=== PATIENT | female | born 1995 ===

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

== ENCOUNTER 2018-06-22 14:54 | Emergency (ER) | payer MEDICAID, OTHER ==
[2018-06-22 15:09] VITALS: O2SAT 100
[2018-06-22] MEDS ORDERED: Sodium Chloride 0.9% 500 ML IV STA (15:40)
--- NOTE | 2018-06-22 15:41 | ED PDOC ---
HPI: Chest Pain Time Seen by Provider: 06/22/18 15:12 Chief Complaint (Nursing): Chest Pain Chief Complaint (Provider): Chest Pain History Per: Patient History/Exam Limitations: no limitations Onset/Duration Of Symptoms: Hrs (x3.5) Current Symptoms Are (Timing): Still Present Quality: "Pain" Associated Symptoms: denies: Nausea, Dyspnea, Diaphoresis, Syncope Modifying Factors: None Exacerbating Factors: Movement Alleviating Factors: None Additional Complaint(s): 22 y/o female with no significant PMHx presents to the ED complaining of chest p ain, onset 3.5 hours ago. Patient reports pain is located in the mid-chest and worsens with movement. Otherwise, patient denies shortness of breath, headache, nausea, vomiting, diarrhea, leg pain, cough, congestion, rhinorrhea, any recent travel, control use and medications for symptom relief. No leg pain. PMD: Past Medical History Reviewed: Historical Data, Nursing Documentation, Vital Signs Vital Signs: Last Vital Signs Temp 98 F 06/22/18 15:09 Pulse 68 06/22/18 15:09 Resp 18 06/22/18 15:09 BP 102/68 06/22/18 15:09 Pulse Ox 100 06/22/18 15:09 - Medical History PMH: No Chronic Diseases - Surgical History Surgical History: No Surg Hx - Family History Family History: States: Unknown Family Hx - Home Medications Home Medications: Ambulatory Orders Medication Instructions Recorded Ibuprofen [Motrin] 600 mg PO Q8 PRN #21 tab 08/29/15 Azithromycin [Zithromax Z-Jimenez] 250 mg PO DAILY #1 packet 01/05/16 metroNIDAZOLE [Flagyl] 500 mg PO BID #14 tab 04/27/17 Famotidine [Pepcid] 20 mg PO DAILY PRN #6 tab 06/22/18 Ibuprofen [Motrin] 600 mg PO TID 7 Days tab 06/22/18 - Allergies Allergies/Adverse Reactions: Allergies Allergy/AdvReac Type Severity Reaction Status Date / Time No Known Allergies Allergy Verified 06/22/18 14:58 Review of Systems ROS Statement: Except As Marked, All Systems Reviewed And Found Negative ENT: Negative for: Nose Discharge, Nose Congestion Cardiovascular: Positive for: Chest Pain (mid-chest) Respiratory: Negative for: Cough, Shortness of Breath Gastrointestinal: Negative for: Nausea, Vomiting, Diarrhea Musculoskeletal: Negative for: Leg Pain Neurological: Negative for: Headache Physical Exam - Reviewed Nursing Documentation Reviewed: Yes Vital Signs Reviewed: Yes - Physical Exam Appears: Positive for: Non-toxic, No Acute Distress. Negative for: Uncomfortable Head Exam: Positive for: ATRAUMATIC, NORMOCEPHALIC Skin: Positive for: Normal Color, Warm, Dry Eye Exam: Positive for: Normal appearance, EOMI ENT: Positive for: Normal ENT Inspection Neck: Positive for: Normal, Painless ROM Cardiovascular/Chest: Positive for: Regular Rate, Rhythm, Chest Non Tender. Negative for: Murmur Respiratory: Positive for: Normal Breath Sounds. Negative for: Respiratory Distress Gastrointestinal/Abdominal: Positive for: Soft. Negative for: Tenderness Back: Positive for: Normal Inspection. Negative for: L CVA Tenderness, R CVA Tenderness Extremity: Positive for: Normal ROM. Negative for: Tenderness, Pedal Edema, Deformity Neurologic/Psych: Positive for: Alert, Oriented (x3) - Laboratory Results Result Diagrams: 06/22/18 16:00 06/22/18 16:00 Interpretation Of Abn Labs: no acute - ECG ECG: Positive for: Interpreted By Me, Viewed By Me ECG Rhythm: Positive for: Normal QRS, Normal ST Segment, Sinus Rhythm O2 Sat by Pulse Oximetry: 100 (RA) Pulse Ox Interpretation: Normal - Radiology X-Ray: Read By Radiologist X-Ray Interpretation: No Acute Disease - Progress ED Course And Treament: 1734: Stable. AAOx3. Pain free. Tolerated PO. Fu with pcp. Medical Decision Making Medical Decision Making: Time: 1541 Plan: -- EKG -- CMP -- Troponin I -- ED Urine -- CBC with Differentials -- CXR Two Views -- Sodium Chloride 0.9% 100 mls/hr -- Pepcid 20 mg IVP -- Toradol 15 mg IVP Scribe Attestation: Documented by Amy Cheney, acting as a scribe for Vazquez Medina MD. Provider Scribe Attestation: All medical record entries made by the Scribe were at my direction and personally dictated by me. I have reviewed the chart and agree that the record accurately reflects my personal performance of the history, physical exam, medical decision making, and the department course for this patient. I have also personally directed, reviewed, and agree with the discharge instructions and disposition. Disposition - Clinical Impression Clinical Impression: Chest pain - Patient ED Disposition Is Patient to be Admitted: No Counseled Patient/Family Regarding: Studies Performed, Diagnosis, Need For Followup, Rx Given - Disposition Referrals: [facility] [Outside] - 06/25/18 Disposition: Routine/Home Disposition Time: 17:35 Condition: STABLE Additional Instructions: Return if not better in 3 days. Prescriptions: Famotidine [Pepcid] 20 mg PO DAILY PRN #6 tab PRN Reason: Pain Ibuprofen [Motrin] 600 mg PO TID 7 Days tab Instructions: Chest Pain Forms: [facility] (Tristanian), [facility] ED School/Work Excuse
[2018-06-22 16:12] LABS: BASO % 0.4 % (0.0-2.0); EOS # 0.2 K/uL (0.0-0.7); EOS % 2.1 % (0.0-4.0); HEMOGLOBIN 12.3 g/dL (12.0-16.0); LYMPH # 2.3 K/uL (1.0-4.3); LYMPH % 26.6 % (20.0-40.0); MEAN CELL VOLUME 92.3 fl (81.0-99.0); MEAN CORPUSCULAR HEMOGLOBIN 29.8 pg (27.0-31.0); MEAN CORPUSCULAR HGB CONC 32.3 g/dL (33.0-37.0); MEAN PLATELET VOLUME 7.4 fl (7.2-11.7); MONO # 0.5 K/uL (0.0-0.8); MONO % 5.7 % (0.0-10.0); NEUT # 5.6 K/uL (1.8-7.0); NEUT % 65.2 % (50.0-75.0); NRBC % 0.2 % (0.0-0.0); RBC 4.14 Mil/uL (3.80-5.20); RED CELL DISTRIBUTION WIDTH 13.2 % (11.5-14.5); WHITE BLOOD COUNT 8.5 K/uL (4.8-10.8)
[2018-06-22 16:25] LABS: ALT/SGPT 22 U/L (9-52); AST/SGOT 20 U/L (14-36); BLOOD UREA NITROGEN 8 mg/dl (7-17); CALCIUM 9.3 mg/dL (8.4-10.2); GFR NON-AFRICAN AMERICAN > 60
--- NOTE | 2018-06-22 17:10 | RAD ---
Date of service: 06/22/2018 HISTORY: chest pain COMPARISON: No prior. TECHNIQUE: Chest PA and lateral FINDINGS: LUNGS: No active pulmonary disease. PLEURA: No significant pleural effusion identified. No pneumothorax apparent. CARDIOVASCULAR: No aortic atherosclerotic calcification present. Normal cardiac size. No pulmonary vascular congestion. OSSEOUS STRUCTURES: No significant abnormalities. VISUALIZED UPPER ABDOMEN: Normal. OTHER FINDINGS: None. IMPRESSION: No active disease.
[2018-06-22 17:51] VITALS: BP 116/62; PULSE 74; RESP 16; TEMP 98.7
--- NOTE | 2018-06-23 19:07 | CARD ---
APPROVED REPORT Date of service: 06/22/2018 EKG Measurement Heart [id number] <Conclusion> Normal sinus rhythm with sinus arrhythmia Otherwise normal ECG
== END 2018-06-22 17:45 | disposition home or self-care (01) ==
LOC: H.ER 14:54
DX: R07.89 Other chest pain (principal)
CPT/HCPCS: 71046; 80053; 81025; 84484; 85025; 93005; 96374; 96375; 99284; J1885; J7040

== ENCOUNTER 2018-08-14 18:01 | Emergency (ER) | payer MEDICAID ==
[2018-08-14 19:54] VITALS: BP 114/78; PULSE 79; RESP 16; TEMP 97.6; O2SAT 98
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
== END 2018-08-14 22:20 | disposition home or self-care (01) ==
LOC: H.ER 18:01
DX: M54.5 Low back pain (principal)

== ENCOUNTER 2018-09-23 23:24 | Emergency (ER) | payer MEDICAID ==
[2018-09-24 00:08] VITALS: RESP 18
--- NOTE | 2018-09-24 01:02 | ED PDOC ---
HPI: General Adult Time Seen by Provider: 09/24/18 00:08 Chief Complaint (Nursing): Abnormal Skin Integrity Chief Complaint (Provider): Swelling History Per: Patient History/Exam Limitations: no limitations Additional Complaint(s): Patient is a 23 y/o female who states this morning she woke up with swelling localized to both hands and feet. She also reports that shortly after she developed itching to entire body without rash. She states symptoms have persisted. She has not used medicine to relieve symptoms nor is she certain as to how they began as it has never happened before. Patient further reports that yesterday she developed a fever with cough and congestion and all symptoms resolved after taking one dose of Motrin. She denies chest pain, rash, throat swelling, as well as history of liver disease or previous allergic reaction. Past Medical History Reviewed: Historical Data, Nursing Documentation, Vital Signs Vital Signs: Last Vital Signs Temp 99.1 F 09/24/18 00:05 Pulse 102 H 09/24/18 00:05 Resp 18 09/24/18 00:05 BP 110/68 09/24/18 00:05 Pulse Ox 98 09/24/18 00:05 - Family History Family History: States: Unknown Family Hx - Home Medications Home Medications: Ambulatory Orders Medication Instructions Recorded Ibuprofen [Motrin] 600 mg PO Q8 PRN #21 tab 08/29/15 Azithromycin [Zithromax Z-Jimenez] 250 mg PO DAILY #1 packet 01/05/16 metroNIDAZOLE [Flagyl] 500 mg PO BID #14 tab 04/27/17 Famotidine [Pepcid] 20 mg PO DAILY PRN #6 tab 06/22/18 Ibuprofen [Motrin] 600 mg PO TID 7 Days tab 06/22/18 Cyclobenzaprine [Cyclobenzaprine 10 mg PO TID #15 tab 08/14/18 HCl] Ibuprofen [Motrin Tab] 600 mg PO TID #15 tab 08/14/18 DiphenhydrAMINE [Benadryl] 50 mg PO Q6 PRN #12 cap 09/24/18 - Allergies Allergies/Adverse Reactions: Allergies Allergy/AdvReac Type Severity Reaction Status Date / Time No Known Allergies Allergy Verified 08/14/18 19:50 Review of Systems ROS Statement: Except As Marked, All Systems Reviewed And Found Negative Constitutional: Positive for: Fever, Other (itching) ENT: Positive for: Nose Congestion. Negative for: Throat Swelling Cardiovascular: Positive for: Edema (hands and feet). Negative for: Chest Pain Respiratory: Positive for: Cough Skin: Negative for: Rash Physical Exam - Reviewed Nursing Documentation Reviewed: Yes Vital Signs Reviewed: Yes - Physical Exam Appears: Positive for: Well, Non-toxic, No Acute Distress Head Exam: Positive for: ATRAUMATIC, NORMAL INSPECTION, NORMOCEPHALIC Skin: Positive for: Normal Color, Warm. Negative for: Rash Eye Exam: Positive for: EOMI, Normal appearance, PERRL ENT: Positive for: Normal ENT Inspection Neck: Positive for: Normal, Painless ROM Cardiovascular/Chest: Positive for: Regular Rate, Rhythm. Negative for: Murmur Respiratory: Positive for: Normal Breath Sounds. Negative for: Respiratory Distress Pulses-Dorsalis Pedis (L): 2+ Pulses-Dorsalis Pedis (R): 2+ Pulses-Radial (L): 2+ Pulses-Radial (R): 2+ Gastrointestinal/Abdominal: Positive for: Normal Exam, Soft. Negative for: Tenderness Back: Positive for: Normal Inspection Extremity: Positive for: Normal ROM. Negative for: Pedal Edema, Calf Tenderness, Deformity, Swelling (no swelling appreciated to all 4 extremities) Neurological/Psych: Positive for: Awake, Alert, Normal Tone. Negative for: Motor/Sensory Deficits - Laboratory Results Result Diagrams: 09/24/18 01:15 09/24/18 01:15 - ECG O2 Sat by Pulse Oximetry: 98 - Progress ED Course And Treament: On re-evaluation, pt. reports good relief of pruritus. Informed of results and advised to f/u with Dr. Gilman (PMD) for further evaluation but is to return to ED immediately if symptoms worsen. Medical Decision Making Medical Decision Making: Time:00:30 Initial Impression: swelling to hands and feet Initial Plan: * UA * CMP * Benadryl 50 mg Scribe Attestation: Documented by Linden Greene acting as a scribe for Burke Brady PA-C. Provider Scribe Attestation: All medical record entries made by the Scribe were at my direction and personally dictated by me. I have reviewed the chart and agree that the record accurately reflects my personal performance of the history, physical exam, medical decision making, and the department course for this patient. I have also personally directed, reviewed, and agree with the discharge instructions and disposition. Disposition - Clinical Impression Clinical Impression: Pruritus - Patient ED Disposition Is Patient to be Admitted: No - Disposition Referrals: [facility] [Outside] Disposition: Routine/Home Disposition Time: 01:47 Condition: IMPROVED Additional Instructions: FOLLOW UP DR. GILMAN FOR FURTHER EVALUATION RETURN TO ED IMMEDIATELY IF SYMPTOMS WORSEN GWENDOLYN BURGER, thank you for letting us take care of you today. Your provider was Cesar Beck MD and you were treated for HAND/FOOT SWELLING. The emergency medical care you received today was directed at your acute symptoms. If you were prescribed any medication, please fill it and take as directed. It may take several days for your symptoms to resolve. Return to the Emergency Department if your symptoms worsen, do not improve, or if you have any other problems. Please contact your doctor or call one of the physicians/clinics you have been referred to that are listed on the Patient Visit Information form that is included in your discharge packet. Bring any paperwork you were given at discharge with you along with any medications you are taking to your follow up visit. Our treatment cannot replace ongoing medical care by a primary care provider outside of the emergency department. Thank you for allowing the [facility] team to be part of your care today. If you had an X-Ray or CT scan: A Radiologist will review the ED reading if any change in treatment is needed we will contact you. If you had a blood, urine, or wound culture: It will take several days for the results, if any change in treatment is needed we will contact you. If you had an STI test: It will take 48 hours for the results. Please call after 1 week if you have not heard back. Prescriptions: DiphenhydrAMINE [Benadryl] 50 mg PO Q6 PRN #12 cap PRN Reason: itching or rash Instructions: Itchy Skin Forms: [facility] (Azeri), [facility] ED School/Work Excuse Print Language: UPPER SORBIAN
[2018-09-24 01:21] LABS: BASO # 0.1 K/uL (0.0-0.2); BASO % 0.5 % (0.0-2.0); EOS # 0.1 K/uL (0.0-0.7); EOS % 1.2 % (0.0-4.0); HEMOGLOBIN 12.4 g/dL (12.0-16.0); LYMPH # 2.5 K/uL (1.0-4.3); LYMPH % 25.6 % (20.0-40.0); MEAN CELL VOLUME 89.4 fl (81.0-99.0); MEAN CORPUSCULAR HEMOGLOBIN 29.2 pg (27.0-31.0); MEAN CORPUSCULAR HGB CONC 32.7 g/dL (33.0-37.0); MEAN PLATELET VOLUME 7.1 fl (7.2-11.7); MONO # 0.5 K/uL (0.0-0.8); MONO % 4.7 % (0.0-10.0); NEUT # 6.7 K/uL (1.8-7.0); NRBC % 0.1 % (0.0-0.0); RBC 4.25 Mil/uL (3.80-5.20); RED CELL DISTRIBUTION WIDTH 13.4 % (11.5-14.5); WHITE BLOOD COUNT 9.8 K/uL (4.8-10.8)
[2018-09-24 01:25] LABS: SQUAMOUS EPITHIAL 8 /hpf (0-5); URINE BACTERIA RARE (<OCC); URINE BILIRUBIN NEGATIVE (NEGATIVE); URINE BLOOD NEGATIVE (NEGATIVE); URINE CLARITY SLIGHTY-CLOUDY (Clear); URINE COLOR YELLOW (YELLOW); URINE GLUCOSE (UA) NEG (NEGATIVE); URINE LEUKOCYTE ESTERASE NEG Leu/uL (Negative); URINE PROTEIN NEGATIVE (NEGATIVE)
[2018-09-24 01:32] LABS: ALB/GLOB RATIO 1.1 (1.0-2.1); ALBUMIN 3.8 g/dL (3.5-5.0); ALT/SGPT 14 U/L (9-52); AST/SGOT 23 U/L (14-36); BLOOD UREA NITROGEN 13 mg/dl (7-17); GFR NON-AFRICAN AMERICAN > 60
[2018-09-24 02:31] VITALS: BP 111/72; PULSE 89; TEMP 98.8
[2018-09-24 03:01] VITALS: O2SAT 98
== END 2018-09-24 02:00 | disposition home or self-care (01) ==
LOC: H.ER 23:24
DX: L29.9 Pruritus, unspecified (principal)